=== PATIENT | female | born 1955 | race Caucasian/White ===

== ENCOUNTER 2020-05-29 12:45 | Emergency (ER) | payer OTHER ==
[~2020-05-29] VITALS: Ht 160 cm; Wt 63.5 kg
[2020-05-29 12:55] VITALS: BP 125/79
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
--- NOTE | 2020-05-29 13:34 | NUR ---
Pt ambulated to bed 12.
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
[2020-05-29] MEDS ORDERED: KETOROLAC 30 MG/ML VIAL IM ONE (14:30)
[2020-05-29 15:39] VITALS: BP 118/75
== END 2020-05-29 15:38 | disposition home or self-care (01) ==
LOC: MED 12:45
DX: S39.012A Strain of muscle, fascia and tendon of lower back, initial encounter (principal); S70.01XA Contusion of right hip, initial encounter; E11.9 Type 2 diabetes mellitus without complications; K80.80 Other cholelithiasis without obstruction; V89.2XXA Person injured in unspecified motor-vehicle accident, traffic, initial encounter; Y93.89 Activity, other specified; Y92.89 Other specified places as the place of occurrence of the external cause; Y99.8 Other external cause status
CPT/HCPCS: 72100; 73521; 96372; 99284; J1885